=== PATIENT | female | born 1935 | race Caucasian/White ===

== ENCOUNTER → 2019-10-16 | Outpatient (CLI) | payer OTHER | END | disposition home or self-care (01) | LOC: RAD 15:33 | DX: S72.91XA Unspecified fracture of right femur, initial encounter for closed fracture (principal) ==

== ENCOUNTER 2020-05-23 08:00 | Outpatient (CLI) | payer OTHER | END 2020-05-23 18:00 | disposition home or self-care (01) | LOC: PPH VACUNA 08:00 | PROVIDERS: ATTEND Emergency Medicine Pediatric Emergency Medicine | DX: Z23 Encounter for immunization (principal) ==

== ENCOUNTER → 2020-06-13 08:07 | Outpatient (CLI) | payer OTHER | END | disposition home or self-care (01) | LOC: PPH VACUNA 08:07 | PROVIDERS: ATTEND Emergency Medicine Pediatric Emergency Medicine | DX: Z23 Encounter for immunization (principal) ==

== ENCOUNTER 2021-02-14 14:20 | Outpatient (CLI) | payer OTHER | END 2021-02-14 14:45 | disposition home or self-care (01) | LOC: PPH VACUNA 14:20 | PROVIDERS: ATTEND Emergency Medicine Pediatric Emergency Medicine | DX: Z23 Encounter for immunization (principal) ==

== ENCOUNTER 2021-09-04 15:49 | Outpatient (CLI) | payer OTHER | END 2021-09-04 15:50 | disposition home or self-care (01) | LOC: NUCLEAR 15:49 | DX: S32.019D Unspecified fracture of first lumbar vertebra, subsequent encounter for fracture with routine healing (principal) ==

== ENCOUNTER 2021-09-19 11:30 | Outpatient (CLI) | payer OTHER | END 2021-09-19 13:00 | disposition home or self-care (01) | LOC: ASH CLINIC 11:30 | DX: U07.1 COVID-19 (principal) ==

== ENCOUNTER 2022-02-05 10:54 | Outpatient (CLI) | payer OTHER | END 2022-02-05 11:04 | disposition home or self-care (01) | LOC: PPH VACUNA 10:54 | PROVIDERS: ATTEND Emergency Medicine Pediatric Emergency Medicine | DX: Z23 Encounter for immunization (principal) ==